=== PATIENT | male | born 1945 | race Caucasian/White ===

== ENCOUNTER 2018-06-27 08:48 | Day surgery (SDC) | payer MEDICARE ==
[~2018-06-27] VITALS: Ht 172.7 cm; Wt 68.2 kg
[2018-06-27] MEDS ORDERED: LACTATED RINGERS 1,000 ML IV SCH (09:45)
[2018-06-27] MEDS ORDERED: INSU100V8 SQ (09:48)
[2018-06-27] MEDS ORDERED: INSU100I11 SQ (09:48)
[2018-06-27] MEDS ORDERED: MULT-658 PO (09:49)
[2018-06-27 09:54] VITALS: BP 125/76
[2018-06-27] MEDS ORDERED: PLEASE ENTER HEIGHT AND WEIGHT MC SCH (10:00)
[2018-06-27] MEDS ORDERED: PROPOFOL 10 MG/ML, 20ML ONE (10:10)
[2018-06-27] MEDS ORDERED: FENTANYL PF 100 MCG/2ML ONE (10:14)
[2018-06-27] MEDS ORDERED: METOPROLOL 1 MG/ML, 5ML ONE (10:15)
[2018-06-27] MEDS ORDERED: MEPERIDINE/PF 25MG/0.5ML IVPush PRN (11:30)
[2018-06-27] MEDS ORDERED: OXYcodone 5 MG/5 ML ORAL.SOL UDC PO PRN (11:30)
[2018-06-27] MEDS ORDERED: FENTANYL PF 100 MCG/2ML IV PRN (11:30)
[2018-06-27] MEDS ORDERED: HYDROmorphone 2 MG/ML, 1ML IVPush PRN (11:30)
[2018-06-27] MEDS ORDERED: hydrALAzine 20 MG/ML, 1ML IV PRN (11:30)
[2018-06-27] MEDS ORDERED: ONDANSETRON 2MG/ML, 2ML IV PRN (11:30)
[2018-06-27] MEDS ORDERED: LABETALOL 5MG/ML, 20ML IV PRN (11:30)
== END 2018-06-27 12:10 | disposition home or self-care (01) ==
LOC: OUT 08:48
PROVIDERS: ATTEND Internal Medicine
DX: K31.811 Angiodysplasia of stomach and duodenum with bleeding (principal); K31.89 Other diseases of stomach and duodenum; D64.9 Anemia, unspecified; E11.9 Type 2 diabetes mellitus without complications; Z87.39 Personal history of other diseases of the musculoskeletal system and connective tissue
CPT/HCPCS: 44360; 82962; 93005; J2704; J3010; J7120